=== PATIENT | male | born 1995 | race Hispanic/Latino ===

== ENCOUNTER 2021-10-21 03:08 | Inpatient (IN) | payer SELFPAY ==
[2021-10-21] MEDS ORDERED: Ondansetron PF 4 MG/2 ML Vial ONE (04:54)
[2021-10-21 05:00] LABS: #Basophils 0.1 thou/uL (0.0-0.2); #Eosinphils 0.1 thou/uL (0.0-0.7); #Lymphocytes 3.2 thou/uL (1.20-3.40); #Monocytes 0.6 thou/uL (0.11-0.59); #Neutrophils 3.5 thou/uL (1.40-6.50); %Basophils 0.9 % (0.0-1.0); %Eosinophils 0.9 % (0.0-10.0); %Lymphocytes 43.2 % (21.0-51.0); %Monocytes 7.8 % (0.0-10.0); %Neutrophils 47.3 % (42.0-75.0); Hemoglobin 16.9 g/dL (14.0-18.0); Mean Corpuscular HGB CONC 33.7 g/dL (32.0-36.0); Mean Corpuscular Hemoglobin 31.3 pg (27.0-31.0); Mean Corpuscular Volume 92.9 fL (78.0-98.0); Mean Platelet Volume 6.8 fL (7.4-10.4); Platelet Count 384 thou/uL (130-400); RBC Distribution Width 13.7 % (11.5-14.5); Red Blood Cell (RBC) Count 5.38 mill/uL (4.70-6.10); White Blood Cell (WBC) Count 7.3 thou/uL (4.8-10.8)
[2021-10-21 05:09] LABS: PTT 32.6 sec (22.9-36.1)
[2021-10-21] MEDS ORDERED: chlordiazePOXIDE HCl 25 MG CAP PO SCH (05:15)
[2021-10-21 05:18] LABS: ALT (SGPT) 36 U/L (8-55); AST (SGOT) 44 U/L (5-34); Acetaminophen Less than 10.0 mcg/mL (10.0-30.0); Albumin 4.4 g/dL (3.5-5.0); Alcohol 251 mg/dL (Less than 10); Alkaline Phosphatase 86 U/L (40-110); Anion Gap 19 mmol/L (10-20); BUN (Urea Nitrogen) 4 mg/dL (8.9-20.6); Bilirubin, Total 0.5 mg/dL (0.2-1.2); Calc. Creatinine Clearance 0 mL/min (70-130); Calcium 9.2 mg/dL (7.8-10.44); Carbon Dioxide 27 mmol/L (22-29); Chloride 98 mmol/L (98-107); Estimated GFR 126; Globulin 4.1 g/dL (2.4-3.5); Glucose 105 mg/dL (70-105); Lipase 55 U/L (8-78); Potassium 3.8 mmol/L (3.5-5.1); Protein, Total 8.5 g/dL (6.0-8.3); Salicylate Less than 8.0 mg/dL (15.0-30.0); Sodium 140 mmol/L (136-145)
[2021-10-21] MEDS ORDERED: Lorazepam (BATCHED) 2 MG/ML SYR ONE (07:52)
[2021-10-21 08:26] LABS: Troponin I Less than 0.010 ng/mL (< 0.028)
[2021-10-21] MEDS ORDERED: Iopamidol-370 76% 500 ML 1 ML ONE (09:04)
[2021-10-21] MEDS ORDERED: Lorazepam 1 MG TAB PO PRN (09:35)
[2021-10-21] MEDS ORDERED: Ondansetron ODT 4 MG TAB PO PRN ×2 (09:35)
[2021-10-21] MEDS ORDERED: Labetalol HCl 100 MG/20 ML VIAL SLOW IVP PRN (09:35)
[2021-10-21] MEDS ORDERED: hydrALAZINE 20 MG/ML VIAL SLOW IVP PRN (09:35)
[2021-10-21] MEDS ORDERED: Lorazepam (BATCHED) 2 MG/ML SYR IM PRN (09:35)
[2021-10-21] MEDS ORDERED: Electrolyte Replacement Protocol 1 EACH FS SCH (09:35)
[2021-10-21] MEDS: Multivitamins, Adult 10 ML, Folic Acid 1 MG, Thiamine HCl 100 MG in Dextrose 5 %-0.45 %... IV SCH (10:52)
[2021-10-21] MEDS ORDERED: Lorazepam 1 MG TAB ONE (10:59)
[2021-10-21] MEDS: Lorazepam 1 MG TAB PO SCH ×4 (11:00→23:14)
[2021-10-21] MEDS: Thiamine HCl 200 MG/2 ML VIAL SLOW IVP SCH (11:00)
[2021-10-21] MEDS: Sodium Chloride 0.9% 1,000 ML IV SCH ×2 (11:00→17:22)
[2021-10-21 11:10] LABS: Magnesium 1.9 mg/dL (1.6-2.6); Phosphorus 3.9 mg/dL (2.3-4.7)
[2021-10-21 11:16] LABS: Troponin I Less than 0.010 ng/mL (< 0.028)
[2021-10-21] MEDS ORDERED: Magnesium 2 GM/50 ML(in water) 2 GM in Premix Bag 1 BAG IVPB SCH (11:45)
[2021-10-21] MEDS: Acetaminophen 500 MG TAB PO PRN ×2 (11:48→17:19)
[2021-10-21] MEDS ORDERED: Acetaminophen 500 MG TAB ONE (11:50)
[2021-10-21] MEDS ORDERED: Magnesium 2 GM/50 ML BAG (IN WATER) ONE (11:50)
[2021-10-21 13:01] LABS: SARS-CoV-2 NAA Rapid Test DETECTED (NotDetected)
[2021-10-21 13:51] LABS: Syphilis Antibody Nonreactive (Nonreactive); Syphilis Antibody Index 0.04 S/CO (<1.00 Non-Reactive)
[2021-10-21 17:06] VITALS: BMI 28.8
[2021-10-21] MEDS: Ondansetron PF 4 MG/2 ML Vial IVP PRN (18:42)
[2021-10-22] MEDS: Acetaminophen 500 MG TAB PO PRN (00:11)
[2021-10-22] MEDS: Lorazepam 1 MG TAB PO SCH ×4 (00:13→17:54)
[2021-10-22 00:51] LABS: Amphetamine Not Detected (NotDetected); Barbiturates Screen Not Detected (NotDetected); Benzodiazepine Screen Detected (NotDetected); Cocaine Metabolite Screen Not Detected (NotDetected); Methadone Not Detected (NotDetected); Methamphetamine Not Detected (NotDetected); Opiate Screen Not Detected (NotDetected); Oxycodone Screen Not Detected (NotDetected); Phencyclidine (PCP) Not Detected (NotDetected); THC/Cannabinoid Screen Not Detected (NotDetected); Tricyclic Screen Not Detected (NotDetected)
[2021-10-22] MEDS: Sodium Chloride 0.9% 1,000 ML IV SCH ×2 (02:45→17:54)
[2021-10-22 04:37] LABS: #Basophils 0.1 thou/uL (0.0-0.2); #Eosinphils 0.1 thou/uL (0.0-0.7); #Lymphocytes 1.4 thou/uL (1.20-3.40); #Monocytes 0.5 thou/uL (0.11-0.59); %Basophils 1.2 % (0.0-1.0); %Eosinophils 0.8 % (0.0-10.0); %Lymphocytes 17.7 % (21.0-51.0); %Monocytes 6.2 % (0.0-10.0); %Neutrophils 74.2 % (42.0-75.0); Hemoglobin 15.7 g/dL (14.0-18.0); Mean Corpuscular HGB CONC 34.2 g/dL (32.0-36.0); Mean Corpuscular Hemoglobin 32.2 pg (27.0-31.0); Mean Corpuscular Volume 94.2 fL (78.0-98.0); Mean Platelet Volume 6.8 fL (7.4-10.4); Platelet Count 288 thou/uL (130-400); RBC Distribution Width 13.4 % (11.5-14.5); Red Blood Cell (RBC) Count 4.88 mill/uL (4.70-6.10); White Blood Cell (WBC) Count 8.1 thou/uL (4.8-10.8)
[2021-10-22 05:21] LABS: ALT (SGPT) 30 U/L (8-55); AST (SGOT) 36 U/L (5-34); Albumin 4.1 g/dL (3.5-5.0); Alkaline Phosphatase 78 U/L (40-110); Anion Gap 15 mmol/L (10-20); BUN (Urea Nitrogen) 6 mg/dL (8.9-20.6); Bilirubin, Total 1.8 mg/dL (0.2-1.2); Calc. Creatinine Clearance 191 mL/min (70-130); Calcium 9.6 mg/dL (7.8-10.44); Carbon Dioxide 26 mmol/L (22-29); Chloride 97 mmol/L (98-107); Estimated GFR 125; Globulin 3.6 g/dL (2.4-3.5); Glucose 83 mg/dL (70-105); Potassium 4.2 mmol/L (3.5-5.1); Protein, Total 7.7 g/dL (6.0-8.3); Sodium 134 mmol/L (136-145)
[2021-10-22] MEDS ORDERED: Lorazepam 1 MG TAB PO PRN (09:29)
[2021-10-22] MEDS: Multivitamins, Adult 10 ML, Folic Acid 1 MG, Thiamine HCl 100 MG in Dextrose 5 %-0.45 %... IV SCH (09:50)
[2021-10-22] MEDS: Thiamine HCl 200 MG/2 ML VIAL SLOW IVP SCH (09:51)
[2021-10-22] MEDS: Multivit, Therapeutic 1 TAB PO SCH (09:51)
[2021-10-22] MEDS: Folic Acid 1 MG TAB PO SCH (09:51)
[2021-10-22] MEDS: Ondansetron PF 4 MG/2 ML Vial IVP PRN (13:01)
[2021-10-23] MEDS: Lorazepam 1 MG TAB PO SCH ×2 (00:05→06:52)
[2021-10-23] MEDS: Sodium Chloride 0.9% 1,000 ML IV SCH ×3 (01:30→10:39)
[2021-10-23] MEDS: Acetaminophen 500 MG TAB PO PRN (02:42)
[2021-10-23 05:37] LABS: #Eosinphils 0.1 thou/uL (0.0-0.7); #Lymphocytes 1.3 thou/uL (1.20-3.40); #Monocytes 0.5 thou/uL (0.11-0.59); %Basophils 0.3 % (0.0-1.0); %Eosinophils 1.2 % (0.0-10.0); %Monocytes 6.6 % (0.0-10.0); Hemoglobin 16.1 g/dL (14.0-18.0); Mean Corpuscular HGB CONC 34.4 g/dL (32.0-36.0); Mean Corpuscular Hemoglobin 32.5 pg (27.0-31.0); Mean Corpuscular Volume 94.3 fL (78.0-98.0); Platelet Count 247 thou/uL (130-400); RBC Distribution Width 13.5 % (11.5-14.5); Red Blood Cell (RBC) Count 4.94 mill/uL (4.70-6.10); White Blood Cell (WBC) Count 7.9 thou/uL (4.8-10.8)
[2021-10-23 05:57] LABS: ALT (SGPT) 53 U/L (8-55); AST (SGOT) 85 U/L (5-34); Albumin 4.3 g/dL (3.5-5.0); Alkaline Phosphatase 82 U/L (40-110); Anion Gap 16 mmol/L (10-20); BUN (Urea Nitrogen) 8 mg/dL (8.9-20.6); Bilirubin, Total 1.6 mg/dL (0.2-1.2); Calc. Creatinine Clearance 210 mL/min (70-130); Calcium 9.7 mg/dL (7.8-10.44); Carbon Dioxide 22 mmol/L (22-29); Chloride 99 mmol/L (98-107); Estimated GFR 129; Globulin 3.6 g/dL (2.4-3.5); Glucose 78 mg/dL (70-105); Potassium 3.7 mmol/L (3.5-5.1); Protein, Total 7.9 g/dL (6.0-8.3); Sodium 133 mmol/L (136-145)
[2021-10-23 08:34] VITALS: BP 133/88; TEMP 98
[2021-10-23] MEDS: Folic Acid 1 MG TAB PO SCH (08:41)
[2021-10-23] MEDS: Multivit, Therapeutic 1 TAB PO SCH (08:41)
[2021-10-23] MEDS ORDERED: Lorazepam 1 MG TAB PO PRN (09:29)
[2021-10-23] MEDS: Lorazepam 0.5 MG TAB PO SCH ×3 (10:36→13:43)
[2021-10-23] MEDS: Multivitamins, Adult 10 ML, Folic Acid 1 MG, Thiamine HCl 100 MG in Dextrose 5 %-0.45 %... IV SCH (10:39)
[2021-10-23] MEDS: Thiamine HCl 200 MG/2 ML VIAL SLOW IVP SCH (10:39)
[2021-10-24] MEDS ORDERED: Thiamine 100 MG TAB PO SCH (09:00)
[2021-10-24] MEDS ORDERED: Lorazepam 0.5 MG TAB PO PRN (09:29)
== END 2021-10-23 14:26 | disposition home or self-care (01) | DRG 896 ==
LOC: ERS 03:08 → ERHOLD 07:44 → 2NO 16:45 → T4-A 10-22 13:38
PROVIDERS: ADMIT Internal Medicine; ATTEND Internal Medicine
PROC: 8E0ZXY6 Isolation (ICD-10-PCS; principal; 2021-10-21)
DX: F10.229 Alcohol dependence with intoxication, unspecified (principal); G92.8 Other toxic encephalopathy; U07.1 COVID-19; F10.239 Alcohol dependence with withdrawal, unspecified; J45.909 Unspecified asthma, uncomplicated; F41.9 Anxiety disorder, unspecified; Y90.2 Blood alcohol level of 40-59 mg/100 ml
CPT/HCPCS: 36415; 74177; 80053; 80306; 80307; 83690; 83735; 84100; 84484; 85025; 85610; 85730; 86780; 93005; J2060; J2405; J3411; J3475; J7042; J7050; Q9967; U0002